=== PATIENT | male | born 1955 | race African-American/Black ===

== ENCOUNTER → 2016-08-04 | Outpatient (CLI) | payer OTHER ==
[~2016-08-04] MED LIST: CONTRAST GIVEN MC PRN; IOHEXOL 300 MG/ML 75 ML VIAL IV ONE
--- NOTE | 2016-08-04 09:40 | RAD ---
Indication: Abnormal chest x-ray. Axial images through the chest were obtained. Approximately 75 cc of Omnipaque 300 was administered. No prior imaging is available. Imaging through the upper abdomen is unremarkable. The thoracic aorta appears unremarkable. There is no significant hilar or mediastinal adenopathy. There are densely calcified right hilar lymph nodes and occasional calcified subcarinal lymph nodes. Occasional calcified pulmonary nodules are also seen. There is some volume loss in both lungs, right middle lobe, lingula and left lower lobe most compatible with atelectasis or scar. There is a groundglass opacity in the right upper lobe which is nonspecific. A dominant soft tissue mass or definite acute finding in the chest is not seen. IMPRESSION: Evidence for old granulomatous disease as outlined above. No dominant soft tissue mass seen in either lung. Scattered areas of volume loss in both lungs most likely reflecting atelectasis or scar. Nonspecific groundglass opacity in the right upper lobe. PQRS Compliance Statement: One or more of the following individualized dose reduction techniques were utilized for this examination: 1. Automated exposure control 2. Adjustment of the mA and/or kV according to patient size 3. Use of iterative reconstruction technique
== END | disposition home or self-care (01) ==
LOC: CT 08:11
PROVIDERS: ATTEND Family Medicine
DX: R06.02 Shortness of breath (principal); R05 Cough; R91.8 Other nonspecific abnormal finding of lung field
CPT/HCPCS: 71260; Q9967